=== PATIENT | male | born 1940 | race Caucasian/White ===

== ENCOUNTER 2017-12-23 04:40 | Emergency (ER) | payer MEDICARE ==
[~2017-12-23] VITALS: Ht 167.6 cm; Wt 65.0 kg
[2017-12-23] MEDS ORDERED: BACITRACIN ZINC OINT UDPKT TOP ONE (07:00)
[2017-12-23] MEDS ORDERED: LIDOCAINE HCL/EPINEPHRINE 1%-EPI 1:100,000 20 ML VIAL INFIL ONE (07:00)
[2017-12-23] MEDS ORDERED: ACETAMINOPHEN 325MG TABLET PO ONE (07:45)
[2017-12-23] MEDS ORDERED: TETANUS, DIPHTHERIA, PERTUSSIS VAC/PF 0.5ML (>7YR OLD) IM ONE (07:45)
[2017-12-23 08:53] LABS: BASOPHILS % 0.9 % (0.0-2.0); EOSINOPHILS % 0.4 % (0.0-5.0); HEMATOCRIT. 51.5 % (42.0-52.0); HEMOGLOBIN. 17.4 g/dL (14.0-18.0); LYMPHOCYTES % 16.4 % (20.0-50.0); MEAN CORPUSCULAR HEMOGLOBIN 29.7 pg (28.0-32.0); MEAN CORPUSCULAR VOLUME 88.1 fL (80.0-94.0); MONOCYTES % 6.2 % (2.0-8.0); NEUTROPHILS % 76.1 % (40.0-76.0); PLATELET 229 x1000/uL (130-400); RED BLOOD CELL COUNT 5.85 mill/uL (4.7-6.1); RED CELL DISTRIBUTION WIDTH 14.5 % (11.6-14.6)
[2017-12-23 08:59] LABS: CHLORIDE 107 mEq/L (98-107)
[2017-12-23 09:00] LABS: PARTIAL THROMBOPLASTIN TIME 30.7 sec (23.4-31.0); PROTHROMBIN TIME 10.5 sec (9.1-11.1)
[2017-12-23 09:04] LABS: ETHANOL BLOOD 210 mg/dL
[2017-12-23] MEDS ORDERED: IBUPROFEN 400MG TABLET PO ONE (09:30)
[2017-12-23 09:47] VITALS: BP 130/79
== END 2017-12-23 10:21 | disposition home or self-care (01) ==
LOC: ER 05:01
DX: S01.81XA Laceration without foreign body of other part of head, initial encounter (principal); F17.200 Nicotine dependence, unspecified, uncomplicated; W01.0XXA Fall on same level from slipping, tripping and stumbling without subsequent striking against object, initial encounter; Y93.89 Activity, other specified; Y92.89 Other specified places as the place of occurrence of the external cause; Y99.8 Other external cause status
CPT/HCPCS: 12011; 36415; 70450; 80053; 85025; 85610; 85730; 90471; 90715; 99285; G0482; J3490

== ENCOUNTER 2018-01-01 08:29 | Emergency (ER) | payer MEDICARE ==
[~2018-01-01] VITALS: Ht 175.3 cm; Wt 68.0 kg
[2018-01-01 08:32] VITALS: BP 147/80
[2018-01-01] MEDS ORDERED: BACITRACIN ZINC OINT UDPKT TOP ONE (09:00)
== END 2018-01-01 09:14 | disposition home or self-care (01) ==
LOC: ER 09:14
DX: H00.036 Abscess of eyelid left eye, unspecified eyelid (principal); F17.200 Nicotine dependence, unspecified, uncomplicated; Z98.890 Other specified postprocedural states
CPT/HCPCS: 99283

== ENCOUNTER 2019-07-17 10:33 | Emergency (ER) | payer MEDICARE ==
[~2019-07-17] VITALS: Ht 157.5 cm; Wt 67.1 kg
[2019-07-17] MEDS ORDERED: ONDANSETRON HCL 4MG/2ML INJ IV STA (10:46)
[2019-07-17] MEDS ORDERED: KETOROLAC 30MG/ML VIAL IV STA (10:46)
[2019-07-17 11:46] LABS: BASOPHILS % 0.2 % (0.0-2.0); EOSINOPHILS % 0.4 % (0.0-5.0); HEMATOCRIT. 46.9 % (42.0-52.0); LYMPHOCYTES % 9.1 % (20.0-50.0); MEAN CORPUSCULAR HEMOGLOBIN 30.4 pg (28.0-32.0); MEAN CORPUSCULAR VOLUME 89.1 fL (80.0-94.0); MEAN PLATELET VOLUME 7.7 fl (7.4-10.4); MONOCYTES % 10.9 % (2.0-8.0); NEUTROPHILS % 79.4 % (40.0-76.0); PLATELET 218 x1000/uL (130-400); RED BLOOD CELL COUNT 5.26 mill/uL (4.7-6.1); RED CELL DISTRIBUTION WIDTH 14.4 % (11.6-14.6)
[2019-07-17 11:51] LABS: CHLORIDE 104 mEq/L (98-107)
[2019-07-17 11:52] LABS: INR 0.9
[2019-07-17 13:30] VITALS: BP 112/75
== END 2019-07-17 13:36 | disposition home or self-care (01) ==
LOC: ER 10:33
DX: K52.9 Noninfective gastroenteritis and colitis, unspecified (principal)
CPT/HCPCS: 36415; 74176; 80053; 83690; 85025; 85610; 96374; 96375; 99284; J1885; J2405